=== PATIENT | female | born 1985 | race African-American/Black ===

== ENCOUNTER 2023-01-14 09:11 | Emergency (ER) | payer MEDICAID ==
[~2023-01-14] VITALS: Ht 165.1 cm; Wt 87.0 kg
[2023-01-14 09:16] VITALS: BP 125/70; PULSE 85; RESP 19; TEMP 98.3; O2SAT 99
[2023-01-14] MEDS ORDERED: MUPI15CR11 TP (10:07)
[2023-01-14] MEDS ORDERED: HYDR453.4 TP (10:07)
== END 2023-01-14 10:18 | disposition home or self-care (01) ==
LOC: ER 10:17
DX: R21 Rash and other nonspecific skin eruption (principal); Z88.2 Allergy status to sulfonamides
CPT/HCPCS: 99283